=== PATIENT | female | born 1930 | race Caucasian/White ===

== ENCOUNTER 2017-11-08 23:18 | Inpatient (IN) | payer MEDICARE, MEDICAID ==
--- NOTE | 2017-11-09 00:28 | ED Physician Chart ---
ED Chief Complaint/HPI - Patient Information Date Seen:: 11/09/17 Time Seen:: 00:24 Chief Complaint:: agitation History of Present Illness:: 87 yr old female with alzheimers demensia agitation here gem rogel Allergies:: Allergies Allergy/AdvReac Type Severity Reaction Status Date / Time No Known Allergies Allergy Verified 11/08/17 23:55 Vitals:: Vital Signs - 8 hr 11/08/17 23:20 Temp 97.7 F HR 81 RR 19 BP 115/63 O2 Sat % 96 ED Review of Systems - Review of Systems General/Constitutional: No fever, Chills, No chills, No weight loss, No weakness , No diaphoresis, No edema, No loss of appetite Skin: No skin lesions, No rash, No bruising Head: No headache, No light-headedness Eyes: No loss of vision, No pain, No diplopia ENT: No earache, No nasal drainage, No sore throat, No tinnitus Neck: No neck pain, No swelling, No thyromegaly, No stiffness, No mass noted Cardio Vascular: No chest pain, No palpitations, No PND, No orthopnea, No edema Pulmonary: No SOB, No cough, No sputum, No wheezing GI: No nausea, No vomiting, No diarrhea, No pain, No melena, No hematochezia, No constipation, No hematemesis G/U: No dysuria, No frequency, No hematuria Musculoskeletal: No bone or joint pain, No back pain, No muscle pain Endocrine: No polyuria, No polydipsia Psychiatric: No prior psych history, No depression, No anxiety, No suicidal ideation Hematopoietic: No bruising, No lymphadenopathy Allergic/Immuno: No urticaria, No angioedema Neurological: No syncope, No focal symptoms, No weakness, No paresthesia, No headache, No seizure, No dizziness, No confusion, No vertigo ED Past Medical History - Past Medical History Past Medical History: Other (alzheimers dementia ) Family History: None Social History: Non Smoker, No Alcohol, No Drug Use Psychiatricy History: Schizophrenia, Bipolar, Dementia Family Medical History - Family Member Mother History Unknown: Yes ED Physical Exam - Physical Examination General/Constitutional: Awake, Well-developed, well-nourished, Alert, No distress, GCS 15, Non-toxic appearing, Ambulatory Head: Atraumatic Eyes: Lids, conjuctiva normal, PERRL, EOMI Skin: Nl inspection, No rash, No skin lesions, No ecchymosis, Well hydrated, No lymphadenopathy ENMT: External ears, nose nl, Nasal exam nl, Lips, teeth, gums nl Neck: Nontender, Full ROM w/o pain, No JVD, No nuchal rigidity, No bruit, No mass, No stridor Respiratory: Nl effort/Exclusion, Clear to Auscultation, No Wheeze/Rhonchi/Rales Cardio Vascular: RRR, No murmur, gallop, rubs, NL S1 S2 GI: No tenderness/rebounding/guarding, No organomegaly, No hernia, Normal BS's, Nondistended, No mass/bruits, No McBurney tenderness : No CVA tenderness Extremities: No tenderness or effusion, Full ROM, normal strength in all extremities, No edema, Normal digits & nails Neuro/Psych: Alert/oriented, DTR's symmetric, Normal sensory exam, Normal motor strength, Judgement/insight normal, Mood normal, Normal gait, No focal deficits Misc: Normal back, No paraspinal tenderness ED Assessment - Assessment General Assessment: pt awake but sedated ED Septic Shock - . Is Septic Shock (SBP<90, OR Lactate>4 mmol\L) present?: No - <6hrs of presentation: Vital Signs: Vital Signs - 8 hr 11/08/17 23:20 Temp 97.7 F HR 81 RR 19 BP 115/63 O2 Sat % 96 Assessment of Lungs: No Rales Assessment of Heart: No Rub ED Reassessment (Disposition) - Diagnosis Diagnosis:: t - Patient Disposition Discharge/Transfer:: Acute Care w/in this hosp
--- NOTE | 2017-11-09 00:39 | ED Physician Chart ---
ED Chief Complaint/HPI - Patient Information Date Seen:: 11/09/17 Time Seen:: 00:34 Chief Complaint:: agitation History of Present Illness:: yr old female bib for agitation Allergies:: Allergies Allergy/AdvReac Type Severity Reaction Status Date / Time No Known Allergies Allergy Verified 11/08/17 23:55 Vitals:: Vital Signs - 8 hr 11/08/17 23:20 Temp 97.7 F HR 81 RR 19 BP 115/63 O2 Sat % 96 ED Review of Systems - Review of Systems General/Constitutional: No fever, No chills, No weight loss, No weakness, No diaphoresis, No edema, No loss of appetite Skin: No skin lesions, No rash, No bruising Head: No headache, No light-headedness Eyes: No loss of vision, No pain, No diplopia ENT: No earache, No nasal drainage, No sore throat, No tinnitus Neck: No neck pain, No swelling, No thyromegaly, No stiffness, No mass noted Cardio Vascular: No chest pain, No palpitations, No PND, No orthopnea, No edema Pulmonary: No SOB, No cough, No sputum, No wheezing GI: No nausea, No vomiting, No diarrhea, No pain, No melena, No hematochezia, No constipation, No hematemesis G/U: No dysuria, No frequency, No hematuria Musculoskeletal: No bone or joint pain, No back pain, No muscle pain Endocrine: No polyuria, No polydipsia Psychiatric: No prior psych history, No depression, No anxiety, No suicidal ideation Hematopoietic: No bruising, No lymphadenopathy Allergic/Immuno: No urticaria, No angioedema Neurological: No syncope, No focal symptoms, No weakness, No paresthesia, No headache, No seizure, No dizziness, No confusion, No vertigo ED Past Medical History - Past Medical History Past Medical History: Arthritis Family History: Heart disease Social History: Smoker Family Medical History - Family Member Mother History Unknown: Yes ED Physical Exam - Physical Examination General/Constitutional: Awake, Well-developed, well-nourished, Alert, No distress, GCS 15, Non-toxic appearing, Ambulatory Head: Atraumatic Eyes: Lids, conjuctiva normal, PERRL, EOMI Skin: Nl inspection, No rash, No skin lesions, No ecchymosis, Well hydrated, No lymphadenopathy ENMT: External ears, nose nl, Nasal exam nl, Lips, teeth, gums nl Neck: Nontender, Full ROM w/o pain, No JVD, No nuchal rigidity, No bruit, No mass, No stridor Respiratory: Nl effort/Exclusion, Clear to Auscultation, No Wheeze/Rhonchi/Rales Cardio Vascular: RRR, No murmur, gallop, rubs, NL S1 S2 GI: No tenderness/rebounding/guarding, No organomegaly, No hernia, Normal BS's, Nondistended, No mass/bruits, No McBurney tenderness : No CVA tenderness Extremities: No tenderness or effusion, Full ROM, normal strength in all extremities, No edema, Normal digits & nails Neuro/Psych: Alert/oriented, DTR's symmetric, Normal sensory exam, Normal motor strength, Judgement/insight normal, Mood normal, Normal gait, No focal deficits Misc: Normal back, No paraspinal tenderness ED Assessment - Assessment General Assessment: geropsych evaluation ED Septic Shock - . Is Septic Shock (SBP<90, OR Lactate>4 mmol\L) present?: No - <6hrs of presentation: Vital Signs: Vital Signs - 8 hr 11/08/17 23:20 Temp 97.7 F HR 81 RR 19 BP 115/63 O2 Sat % 96 ED Reassessment (Disposition) - Reassessment Reassessment Condition:: Improved - Diagnosis Diagnosis:: psycjhosis withalzheimers dz and schizophrenia
[2017-11-09 01:00] LABS: % BASOPHILS 2.2 % (0.0-2.0); % EOSINOPHILS 3.1 % (0.0-5.0); % LYMPHOCYTES 11.1 % (20.0-50.0); % MONOCYTES 10.3 % (2.0-10.0); % NEUTROPHILS 73.3 % (40.0-80.0); BASOPHILE ABSOLUTE 0.2 Th/cumm (0-0.2); EOSINOPHILE ABSOLUTE 0.2 Th/cmm (0.1-0.4); HEMATOCRIT 41.9 % (41.0-60); HEMOGLOBIN 13.8 gm/dL (12-16); LYMPHOCYTE ABSOLUTE 0.8 Th/cmm (1.5-3.0); MEAN CELL VOLUME 91.1 fl (81-100); MEAN CORPUSCULAR HGB CONC 32.9 pg (28.0-36.0); MEAN PLATELET VOLUME 8.1 fl; MONOCYTE ABSOLUTE 0.7 Th/cmm (0.3-1.0); NEUTROPHILE ABSOLUTE 5.3 Th/cmm (1.8-8.0); PLATELET COUNT 226 Th/cmm (150-400); RED CELL DISTRIBUTION WIDTH 14.2 % (11.5-20.0); WHITE BLOOD COUNT 7.2 Th/cmm (4.8-10.8)
[2017-11-09 01:12] LABS: ALB/GLOB RATIO 1.1 (1.0-1.8); ALBUMIN 3.3 gm/dL (3.7-5.3); ALKALINE PHOSPHATASE 76 U/L (34-104); ANION GAP 10.5 (7.0-16.0); BILIRUBIN,TOTAL 0.3 mg/dL (0.3-1.0); BUN - UREA NITROGEN 17 mg/dL (7-25); CARBON DIOXIDE 24.3 mEq/L (21.0-31.0); CHLORIDE 109 mEq/L (98-107); CREATININE - SERUM 0.6 mg/dL (0.6-1.2); GLUCOSE 95 mg/dL (70-105); POTASSIUM SERUM 3.8 mEq/L (3.5-5.1); SGOT 13 U/L (13-39); SGPT/ALT 19 U/L (7-52); SODIUM SERUM 140 mEq/L (136-145); TOTAL PROTEIN,SERUM 6.2 gm/dL (6.0-8.3)
[2017-11-09 02:52] VITALS: BP 108/57
[2017-11-09] MEDS: Escitalopram Oxalate 5 mg Tab PO SCH (09:37)
--- NOTE | 2017-11-09 09:42 | History and Physical ---
History of Present Illness - HPI Chief Complaint: Increased in agitation HPI: Patient was send from SNF for evaluation secondary to increased in agitation. Vital Signs: Last Vital Signs Temp 97.7 F 11/09/17 06:26 Pulse 68 11/09/17 06:26 Resp 19 11/09/17 06:26 BP 121/67 11/09/17 06:26 Pulse Ox 96 11/09/17 06:26 Past Medical History Cardiovascular: Report: CAD Pulmonary: Report: No Pertinent Hx USER EXPERIENCE ARCHITECT: Report: No Pertinent Hx GI: Report: No Pertinent Hx Psych: Report: Depression, Psychosis Musculoskeletal: Report: No Pertinent Hx Rheumatologic: Report: No pertinent Hx Infectious Disease: Report: No Pertinent Hx Renal/: Report: No Pertinent Hx Endocrine: Report: No Pertinent Hx - Past Surgical History Past Surgical History: No pertinent Hx Family Medical History - Family Member Mother History Unknown: Yes Ethnicity: Unknown Living Status: Unknown Social History Smoke: No Alcohol: None Drugs: None Lives: Alf Domestic Violence: Negative - Medications Home Medications: Home Medication Medication Instructions Recorded Type Aspirin [Ecotrin] 81 mg PO DAILY 11/09/17 History Donepezil Hcl [Aricept] 5 mg PO HS 11/09/17 History - Allergies Allergies/Adverse Reactions: Allergies Allergy/AdvReac Type Severity Reaction Status Date / Time No Known Allergies Allergy Verified 11/08/17 23:55 Review of Systems - Review of Systems Constitutional: Report: No Significant Eyes: Report: No Significant ENT: Report: No Significant Respiratory: Report: No Significant Cardiovascular: Report: No Significant Gastrointestinal: Report: No Significant Genitourinary: Report: No Significant Musculoskeletal: Report: No Significant Skin: Report: No Significant Neurological: Report: Weakness, Confusion Physical Exam - Physical Exam HEENT: Report: Ears Nose Throat within normal limits Neck: Report: Within normal limits Cardiovascular Systems: Report: Regular, Rate and Rhythm Respiratory: Report: Breath Sounds are within normal limits Abdomen: Report: Non-tender to palpation Back: Report: Inspection of back is within normal limits. Extremities: Report: Non-tender to palpation. Skin: Report: Color of skin is within normal limits, Warm, Dry Neuro/Psych: Report: Disoriented to name time or place - Lab Results All Lab Results last 24 hours: Laboratory Results - last 24 hr 11/09/17 11/09/17 11/09/17 00:40 00:40 00:40 WBC 7.2 RBC 4.60 Hgb 13.8 Hct 41.9 MCV 91.1 MCH 30.0 MCHC Differential 32.9 RDW 14.2 Plt Count 226 MPV 8.1 Neutrophils % 73.3 Lymphocytes % 11.1 L Monocytes % 10.3 H Eosinophils % 3.1 Basophils % 2.2 H Sodium 140 Potassium 3.8 Chloride 109 H Carbon Dioxide 24.3 Anion Gap 10.5 BUN 17 Creatinine 0.6 Est GFR ( Amer) TNP Est GFR (Non-Af Amer) TNP BUN/Creatinine Ratio 28.3 Glucose 95 Calcium 9.0 Total Bilirubin 0.3 AST 13 ALT 19 Alkaline Phosphatase 76 Total Protein 6.2 Albumin 3.3 L Globulin 2.9 Albumin/Globulin Ratio 1.1 TSH 0.34 - Assessment Assessment: Patient is awake, non verbal. 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 - Plan Plan: Patient is follow by Psychiatry, will continue with SNF meds.
--- NOTE | 2017-11-09 10:40 | Psychiatric Evaluation ---
DATE OF SERVICE: 11/09/2017 PSYCHIATRIC EVALUATION AND MENTAL STATUS EXAMINATION IDENTIFYING DATA: The patient is an 87-year-old woman, resident of [facility] in [place]. Information obtained by directly interviewing the patient as well as reviewing the admission papers and they are reliable. JUSTIFICATION OF HOSPITALIZATION: The patient is admitted here for acute anxiety and depression. CHIEF COMPLAINT: "I don't know." HISTORY OF PRESENT ILLNESS: This is the first psychiatric hospitalization to [facility] for this patient who is reported to have been getting Ativan on a p.r.n. basis, but the patient is reported to have been getting easily agitated and anxious and hence the patient has been referred over here for further stabilization. Chart is reviewed. The patient is interviewed. The patient continues to be isolative and withdrawn and with poor verbalization, the patient does not want to talk anything. PAST PSYCHIATRIC HISTORY: Details are not known. MEDICAL HISTORY: Physical examination is requested to be done by Dr. Monsalve. SUBSTANCE ABUSE HISTORY: None. PHYSICAL OR SEXUAL ABUSE HISTORY: None. LEGAL PROBLEMS: None at this time. STRENGTH AND ASSETS: The patient seems to be motivated. MENTAL STATUS EXAMINATION: The patient is an 87-year-old thin built, superficially cooperative. Eye contact is poor. Mood is noted to be irritable. Affect is constricted. The patient has been having lot of anxiety symptoms. The patient is not presenting with any psychotic symptoms. The patient is selectively mute. Attention span and concentration are noted to be fair at this time. The patient's cognitive abilities could not be tested because the patient is refusing to answer any of the questions. DIAGNOSTIC IMPRESSION: AXIS 1: Anxiety disorder, not otherwise specified. AXIS IB: Dementia and behavioral change, secondary trait. AXIS IC: Depressive disorder, not otherwise specified. AXIS II: None. AXIS III: As per Dr. Monsalve. IMMEDIATE TREATMENT PLAN: The patient is going to be observed on inpatient unit. The patient is going to be started on low dose of Lexapro. ESTIMATED LENGTH OF STAY: 3-5 days. DISCHARGE CRITERIA: When she no longer a threat to self or others and be able to cope up with the stress. [facility]# [id number]
[2017-11-10] MEDS: Escitalopram Oxalate 5 mg Tab PO SCH (09:10)
--- NOTE | 2017-11-10 09:40 | General Progress Note ---
Subjective - Review of Systems Service Date: 11/10/17 Subjective: Patient confused Objective - Results Result Diagrams: 11/09/17 00:40 11/09/17 00:40 Recent Labs: Laboratory Last Values WBC 7.2 Th/cmm (4.8-10.8) 11/09/17 00:40 RBC 4.60 Mil/cmm (3.80-5.20) 11/09/17 00:40 Hgb 13.8 gm/dL (12-16) 11/09/17 00:40 Hct 41.9 % (41.0-60) 11/09/17 00:40 MCV 91.1 fl (81-100) 11/09/17 00:40 MCH 30.0 pg (27.0-31.0) 11/09/17 00:40 MCHC Differential 32.9 pg (28.0-36.0) 11/09/17 00:40 RDW 14.2 % (11.5-20.0) 11/09/17 00:40 Plt Count 226 Th/cmm (150-400) 11/09/17 00:40 MPV 8.1 fl 11/09/17 00:40 Neutrophils % 73.3 % (40.0-80.0) 11/09/17 00:40 Lymphocytes % 11.1 % (20.0-50.0) L 11/09/17 00:40 Monocytes % 10.3 % (2.0-10.0) H 11/09/17 00:40 Eosinophils % 3.1 % (0.0-5.0) 11/09/17 00:40 Basophils % 2.2 % (0.0-2.0) H 11/09/17 00:40 Sodium 140 mEq/L (136-145) 11/09/17 00:40 Potassium 3.8 mEq/L (3.5-5.1) 11/09/17 00:40 Chloride 109 mEq/L (98-107) H 11/09/17 00:40 Carbon Dioxide 24.3 mEq/L (21.0-31.0) 11/09/17 00:40 Anion Gap 10.5 (7.0-16.0) 11/09/17 00:40 BUN 17 mg/dL (7-25) 11/09/17 00:40 Creatinine 0.6 mg/dL (0.6-1.2) 11/09/17 00:40 Est GFR ( Amer) TNP 11/09/17 00:40 Est GFR (Non-Af Amer) TNP 11/09/17 00:40 BUN/Creatinine Ratio 28.3 11/09/17 00:40 Glucose 95 mg/dL (70-105) 11/09/17 00:40 Calcium 9.0 mg/dL (8.6-10.3) 11/09/17 00:40 Total Bilirubin 0.3 mg/dL (0.3-1.0) 11/09/17 00:40 AST 13 U/L (13-39) 11/09/17 00:40 ALT 19 U/L (7-52) 11/09/17 00:40 Alkaline Phosphatase 76 U/L (34-104) 11/09/17 00:40 Total Protein 6.2 gm/dL (6.0-8.3) 11/09/17 00:40 Albumin 3.3 gm/dL (3.7-5.3) L 11/09/17 00:40 Globulin 2.9 gm/dL 11/09/17 00:40 Albumin/Globulin Ratio 1.1 (1.0-1.8) 11/09/17 00:40 TSH 0.34 uIU/ml (0.34-5.60) 11/09/17 00:40 - Physical Exam Vitals and I&O: Vital Signs Temp 98.1 F 11/10/17 06:30 Pulse 72 11/10/17 06:30 Resp 19 11/10/17 06:30 BP 123/71 11/10/17 06:30 Pulse Ox 96 11/10/17 06:30 Intake & Output 11/09/17 11/10/17 11/10/17 18:59 06:59 18:59 Intake Total 900 240 Output Total 1 Balance 900 239 Intake: Oral 900 240 Output: Urine/Stool Mix 1 Other: # Voids 4 3 # Bowel Movements 1 0 Active Medications: Current Medications Aspirin (Ecotrin) 81 mg PO DAILY ELAINE Stop: 01/08/18 08:59 Last Admin: 11/10/17 09:10 Dose: 81 mg Donepezil HCl (Aricept) 5 mg PO HS ELAINE Stop: 01/08/18 20:59 Last Admin: 11/09/17 20:39 Dose: 5 mg Escitalopram Oxalate (Lexapro) 5 mg PO DAILY ELAINE; Protocol Stop: 01/08/18 09:59 Last Admin: 11/10/17 09:10 Dose: 5 mg Lorazepam (Ativan) 0.5 mg PO Q4HR PRN; Protocol PRN Reason: Anxiety Stop: 12/09/17 02:52 Zolpidem Tartrate (Ambien) 5 mg PO HS PRN PRN Reason: Insomnia Stop: 01/08/18 02:52 General: Alert, No acute distress HEENT: Atraumatic Cardiovascular: Regular rate Lungs: Clear to auscultation Abdomen: Bowel sounds Extremities: Other (No edema) Neurological: Other (Unstable gait) Skin: Other (Warm and dry) Psych/Mental Status: Other (Patient is confused, not oriented) Assessment/Plan - Assessment Assessment: Patient is awake, alert, calm, in no acute distress - Plan Plan: Patient is under psychiatric care. Will continue with SNF meds.
--- NOTE | 2017-11-10 20:46 | Progress Notes ---
DATE: 11/10/2017 PSYCHIATRIC PROGRESS NOTE SUBJECTIVE: Staff was spoken to. The patient is interviewed. Mood is noted to be irritable. Affect is constricted. Insight and judgment at this time are noted to be very much impaired. Impulse control is noted to be limited. Coping skills are noted to be limited. No side effects to the medications are noted. The patient has been having difficult time to cope with the stress. The patient is isolative and withdrawn. The patient is still very reluctant to participate in any of the groups and has been very depressed. PLAN: To continue the patient with the Lexapro and use Ativan as needed and followup. JOB# [id number]
--- NOTE | 2017-11-11 09:17 | General Progress Note ---
Subjective - Review of Systems Service Date: 11/11/17 Subjective: Patient confused Objective - Results Result Diagrams: 11/09/17 00:40 11/09/17 00:40 Recent Labs: Laboratory Last Values WBC 7.2 Th/cmm (4.8-10.8) 11/09/17 00:40 RBC 4.60 Mil/cmm (3.80-5.20) 11/09/17 00:40 Hgb 13.8 gm/dL (12-16) 11/09/17 00:40 Hct 41.9 % (41.0-60) 11/09/17 00:40 MCV 91.1 fl (81-100) 11/09/17 00:40 MCH 30.0 pg (27.0-31.0) 11/09/17 00:40 MCHC Differential 32.9 pg (28.0-36.0) 11/09/17 00:40 RDW 14.2 % (11.5-20.0) 11/09/17 00:40 Plt Count 226 Th/cmm (150-400) 11/09/17 00:40 MPV 8.1 fl 11/09/17 00:40 Neutrophils % 73.3 % (40.0-80.0) 11/09/17 00:40 Lymphocytes % 11.1 % (20.0-50.0) L 11/09/17 00:40 Monocytes % 10.3 % (2.0-10.0) H 11/09/17 00:40 Eosinophils % 3.1 % (0.0-5.0) 11/09/17 00:40 Basophils % 2.2 % (0.0-2.0) H 11/09/17 00:40 Sodium 140 mEq/L (136-145) 11/09/17 00:40 Potassium 3.8 mEq/L (3.5-5.1) 11/09/17 00:40 Chloride 109 mEq/L (98-107) H 11/09/17 00:40 Carbon Dioxide 24.3 mEq/L (21.0-31.0) 11/09/17 00:40 Anion Gap 10.5 (7.0-16.0) 11/09/17 00:40 BUN 17 mg/dL (7-25) 11/09/17 00:40 Creatinine 0.6 mg/dL (0.6-1.2) 11/09/17 00:40 Est GFR ( Amer) TNP 11/09/17 00:40 Est GFR (Non-Af Amer) TNP 11/09/17 00:40 BUN/Creatinine Ratio 28.3 11/09/17 00:40 Glucose 95 mg/dL (70-105) 11/09/17 00:40 Calcium 9.0 mg/dL (8.6-10.3) 11/09/17 00:40 Total Bilirubin 0.3 mg/dL (0.3-1.0) 11/09/17 00:40 AST 13 U/L (13-39) 11/09/17 00:40 ALT 19 U/L (7-52) 11/09/17 00:40 Alkaline Phosphatase 76 U/L (34-104) 11/09/17 00:40 Total Protein 6.2 gm/dL (6.0-8.3) 11/09/17 00:40 Albumin 3.3 gm/dL (3.7-5.3) L 11/09/17 00:40 Globulin 2.9 gm/dL 11/09/17 00:40 Albumin/Globulin Ratio 1.1 (1.0-1.8) 11/09/17 00:40 TSH 0.34 uIU/ml (0.34-5.60) 11/09/17 00:40 - Physical Exam Vitals and I&O: Vital Signs Temp 97.6 F 11/11/17 06:22 Pulse 71 11/11/17 06:22 Resp 18 11/11/17 06:22 BP 112/72 11/11/17 06:22 Pulse Ox 92 11/11/17 06:22 Intake & Output 11/10/17 11/11/17 11/11/17 18:59 06:59 18:59 Intake Total 700 360 Output Total 1 Balance 700 359 Intake: Oral 700 360 Output: Urine/Stool Mix 1 Other: # Voids 3 2 # Bowel Movements 1 1 Active Medications: Current Medications Aspirin (Ecotrin) 81 mg PO DAILY ELAINE Stop: 01/08/18 08:59 Last Admin: 11/10/17 09:10 Dose: 81 mg Donepezil HCl (Aricept) 5 mg PO HS ELAINE Stop: 01/08/18 20:59 Last Admin: 11/10/17 20:57 Dose: 5 mg Escitalopram Oxalate (Lexapro) 5 mg PO DAILY ELAINE; Protocol Stop: 01/08/18 09:59 Last Admin: 11/10/17 09:10 Dose: 5 mg Lorazepam (Ativan) 0.5 mg PO Q4HR PRN; Protocol PRN Reason: Anxiety Stop: 12/09/17 02:52 Zolpidem Tartrate (Ambien) 5 mg PO HS PRN PRN Reason: Insomnia Stop: 01/08/18 02:52 General: Alert, No acute distress HEENT: Atraumatic Cardiovascular: Regular rate Lungs: Clear to auscultation Abdomen: Bowel sounds Extremities: Other (No edema) Neurological: Other (Unstable gait) Skin: Other (Warm and dry) Psych/Mental Status: Other (Patient is confused, not oriented) Assessment/Plan - Assessment Assessment: Patient is awake, alert, calm, in no acute distress - Plan Plan: Patient is under psychiatric care. Will continue with SNF meds.
[2017-11-11] MEDS: Escitalopram Oxalate 5 mg Tab PO SCH (16:21)
--- NOTE | 2017-11-11 18:49 | Consultation ---
DATE OF CONSULTATION: 11/11/2017 REFERRING PHYSICIAN: Dana Zhang M.D. TYPE OF CONSULTATION: Psychology. HISTORY OF PRESENT ILLNESS: The patient is an 87-year-old female. The patient is a resident of [facility] in [place]. The following is by review of the medical record and by patient self-report. The patient is being admitted due to acute anxiety and depression. According to record review, the patient had become easily agitated and anxious as reported by the staff at the patient's facility. The patient presents with some expressive aphasia or possibly she is being selectively mute. The patient did not answer questions about suicidal ideation, plan, or intention. The patient appears to be withdrawn. PAST MEDICAL HISTORY: Please see history and physical by Dr. Monsalve. PAST PSYCHIATRIC HISTORY: Information is unavailable at the time of this clinical interview. SUBSTANCE ABUSE HISTORY: The patient did not answer this question. PSYCHOSOCIAL HISTORY: The patient did not answer questions about occupational or educational history or adventism affiliation. She did not answer questions about history of physical or sexual abuse. She did not answer questions about current legal problems. The patient did not discuss any family relationships, marital status, or any other type of support system. MENTAL STATUS EXAMINATION: The patient appears to be her stated age, although somewhat frail. Attitude is superficially cooperative. Eye contact is poor. Speech is slow and delayed and soft. Mood is irritable. Affect is constricted. The patient is complaining of anxiety as well. The patient denied any auditory or visual hallucinations. The patient denies any suicidal ideation, plan or intention. The patient is selectively mute throughout the interview. The patient's behavior has been withdrawn and isolative according to the staff on the unit. Concentration is fair to poor. Impulse control is limited. The patient did not participate in the memory assessment. Sensorium was alert and oriented to self and place. The patient did not participate in the interpretation of proverbs. Insight is poor. Judgment is impaired. DIAGNOSTIC IMPRESSION: AXIS I: 1. Anxiety disorder, not otherwise specified. 2. Depressive disorder, not otherwise specified. 3. Dementia with behavioral disturbance. AXIS II: Deferred. AXIS III: Per Dr. Monsalve. TREATMENT PLAN: The patient has been seen by Dr. Zhang for psychiatric evaluation and for the management of the patient's psychotropic medications. Dr. Zhang has indicated the patient is being started on a low dose of Lexapro. We will provide supportive psychotherapy to include a simple anxiety reduction skill. We will provide coping strategies for phase of life issues. We will provide cognitive behavioral therapy if the patient is able to demonstrate the ability and capacity to benefit with this type of psychological intervention. We will provide motivational enhancement for the patient to become compliant and stay compliant with all aspects of her care and treatment. We will continue to provide supportive therapy including stress management. Thank you, Dr. Zhang, for this consult and the opportunity to participate in this patient's care. JOB# [id number] ALIE
--- NOTE | 2017-11-12 02:23 | Progress Notes ---
DATE: 11/11/2017 PSYCHIATRIC PROGRESS NOTE SUBJECTIVE: Staff was spoken to. The patient is interviewed. Mood is noted to be irritable. Affect is constricted. The patient is having difficult time to articulate. The patient is refusing to eat and fluid intake is also noted to be very less. The patient is extremely depressed. On that basis, the patient has been placed on the Lexapro 5 mg and the patient is encouraged to comply with the medication. ASSESSMENT: The patient at this time is severely depressed. PLAN: To continue the patient with the supportive therapy. Encouraged the patient to verbalize the concerns rather than to act out. JOB# [id number]
--- NOTE | 2017-11-12 09:07 | General Progress Note ---
Subjective - Review of Systems Service Date: 11/12/17 Subjective: Patient confused Objective - Results Result Diagrams: 11/09/17 00:40 11/09/17 00:40 Recent Labs: Laboratory Last Values WBC 7.2 Th/cmm (4.8-10.8) 11/09/17 00:40 RBC 4.60 Mil/cmm (3.80-5.20) 11/09/17 00:40 Hgb 13.8 gm/dL (12-16) 11/09/17 00:40 Hct 41.9 % (41.0-60) 11/09/17 00:40 MCV 91.1 fl (81-100) 11/09/17 00:40 MCH 30.0 pg (27.0-31.0) 11/09/17 00:40 MCHC Differential 32.9 pg (28.0-36.0) 11/09/17 00:40 RDW 14.2 % (11.5-20.0) 11/09/17 00:40 Plt Count 226 Th/cmm (150-400) 11/09/17 00:40 MPV 8.1 fl 11/09/17 00:40 Neutrophils % 73.3 % (40.0-80.0) 11/09/17 00:40 Lymphocytes % 11.1 % (20.0-50.0) L 11/09/17 00:40 Monocytes % 10.3 % (2.0-10.0) H 11/09/17 00:40 Eosinophils % 3.1 % (0.0-5.0) 11/09/17 00:40 Basophils % 2.2 % (0.0-2.0) H 11/09/17 00:40 Sodium 140 mEq/L (136-145) 11/09/17 00:40 Potassium 3.8 mEq/L (3.5-5.1) 11/09/17 00:40 Chloride 109 mEq/L (98-107) H 11/09/17 00:40 Carbon Dioxide 24.3 mEq/L (21.0-31.0) 11/09/17 00:40 Anion Gap 10.5 (7.0-16.0) 11/09/17 00:40 BUN 17 mg/dL (7-25) 11/09/17 00:40 Creatinine 0.6 mg/dL (0.6-1.2) 11/09/17 00:40 Est GFR ( Amer) TNP 11/09/17 00:40 Est GFR (Non-Af Amer) TNP 11/09/17 00:40 BUN/Creatinine Ratio 28.3 11/09/17 00:40 Glucose 95 mg/dL (70-105) 11/09/17 00:40 Calcium 9.0 mg/dL (8.6-10.3) 11/09/17 00:40 Total Bilirubin 0.3 mg/dL (0.3-1.0) 11/09/17 00:40 AST 13 U/L (13-39) 11/09/17 00:40 ALT 19 U/L (7-52) 11/09/17 00:40 Alkaline Phosphatase 76 U/L (34-104) 11/09/17 00:40 Total Protein 6.2 gm/dL (6.0-8.3) 11/09/17 00:40 Albumin 3.3 gm/dL (3.7-5.3) L 11/09/17 00:40 Globulin 2.9 gm/dL 11/09/17 00:40 Albumin/Globulin Ratio 1.1 (1.0-1.8) 11/09/17 00:40 TSH 0.34 uIU/ml (0.34-5.60) 11/09/17 00:40 - Physical Exam Vitals and I&O: Vital Signs Temp 98.4 F 11/12/17 06:28 Pulse 79 11/12/17 06:28 Resp 19 11/12/17 06:28 BP 118/76 11/12/17 06:28 Pulse Ox 94 11/12/17 06:28 Intake & Output 11/11/17 11/12/17 11/12/17 18:59 06:59 18:59 Intake Total 800 240 Balance 800 240 Intake: Oral 800 240 Other: # Voids 3 3 # Bowel Movements 0 0 Active Medications: Current Medications Aspirin (Ecotrin) 81 mg PO DAILY ELAINE Stop: 01/08/18 08:59 Last Admin: 11/11/17 16:21 Dose: Not Given Donepezil HCl (Aricept) 5 mg PO ELAINE Stop: 01/08/18 20:59 Last Admin: 11/11/17 21:01 Dose: 5 mg Escitalopram Oxalate (Lexapro) 5 mg PO DAILY ELAINE; Protocol Stop: 01/08/18 09:59 Last Admin: 11/11/17 16:21 Dose: Not Given Lorazepam (Ativan) 0.5 mg PO Q4HR PRN; Protocol PRN Reason: Anxiety Stop: 12/09/17 02:52 Last Admin: 11/11/17 21:01 Dose: 0.5 mg Zolpidem Tartrate (Ambien) 5 mg PO HS PRN PRN Reason: Insomnia Stop: 01/08/18 02:52 General: Alert, No acute distress HEENT: Atraumatic Cardiovascular: Regular rate Lungs: Clear to auscultation Abdomen: Bowel sounds Extremities: Other (No edema) Neurological: Other (Unstable gait) Skin: Other (Warm and dry) Psych/Mental Status: Other (Patient is confused, not oriented) Assessment/Plan - Assessment Assessment: Patient is awake, non verbal. Per nurse report she is not swallowing well. 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 - Plan Plan: Patient is follow by Psychiatry, will continue with SNF meds. Swallow eval is requested. Nutritional Asmnt/Malnutr-PDOC - Dietary Evaluation Malnutrition Findings (Please click <Entered> for more info): Nutritional Asmnt/Malnutrition Start: 11/11/17 17: 20 Text: Status: Complete Freq: Protocol: Document 11/11/17 17:20 LCHENG (Rec: 11/11/17 17:26 LCHENG [email or web address]) Nutritional Asmnt/Malnutrition Patient General Information Nutritional Screening High Risk Consult Diagnosis anxiety Pertinent Medical Hx/Surgical Hx alzheimers dementia, schizophrenia, bipolar Subjective Information Consult received for low albumin. Pt seen lying in bed at time of visit, confused, not able to communicate. Per EMR, PO intake 50-75%, meeting estimated nutritional needs. Current Diet Order/ Nutrition Support finely chopped Pertinent Medications reviewed Pertinent Labs 11/09 Cl 109, Alb 3.3 Nutritional Hx/Data Height 1.68 m Height (Calculated Centimeters) 167.6 Current Weight (lbs) 58.967 kg Weight (Calculated Kilograms) 59.0 Weight (Calculated Grams) 37558.0 [place] Body Weight 130 Body Mass Index (BMI) 20.9 Weight Status Approriate GI Symptoms GI Symptoms None Last BM 11/11 Difficult in: None Skin Integrity/Comment: intact Current %PO Fair (50-74%) Estimated Nutritional Goals BEE in Kcals: Using Current wt Calories/Kcals/Kg 25-30 Kcals Calculated 8586-1526 Protein: Using Current wt Protein g/k Protein Calculated 59 Fluid: ml 1475-1770ml (1ml/kcal) Nutritional Problem No current Nutrition Prob Problem N/A Malnutrition Alert Is there a minimum of two criteria No selected? Query Text:Check all the applicable criteria. A minimum of two criteria are recommended for diagnosis of either severe or non-severe malnutrition. Malnutrition Related to Morbid Obesity Malnutrition related to morbid obesity No Intervention/Recommendation Comments 1. Continue with current diet as ordered. Assist pt with meals as needed. 2. Monitor PO intake, wt, labs and skin integrity 3. F/U as low risk in 7 dyas, 11/18, PO check 11/14 Expected Outcomes/Goals Expected Outcomes/Goals 1. PO intake to meet at least 75% of nutritional needs. 2. Wt stability, skin to remain intact, labs to approach WNL.
[2017-11-12] MEDS: Escitalopram Oxalate 5 mg Tab PO SCH (17:52)
--- NOTE | 2017-11-13 00:53 | Progress Notes ---
DATE: 11/12/2017 PSYCHIATRIC PROGRESS NOTE Staff was spoken to. The patient is interviewed. Mood is noted to be irritable. Affect is constricted. The patient is isolating and withdrawn. The patient is slowly responding to the medications. The patient has been placed on 5 mg of the Lexapro and has been able to tolerate the medication. No side effects to the medications are noted at this time. ASSESSMENT: The patient is still depressed. PLAN: To continue the patient with the supportive therapy. I encourage the patient to verbalize the concerns rather than to act out. JOB# [id number]
[2017-11-13] MEDS: Escitalopram Oxalate 5 mg Tab PO SCH (08:12)
--- NOTE | 2017-11-14 01:58 | Progress Notes ---
DATE: 11/13/2017 SUBJECTIVE: Staff was spoken to. The patient is interviewed. Mood is noted to be irritable. Affect is constricted. Coping skills are noted to be still poor. Insight and judgment also noted to be limited. The patient has been not willing to comply with the treatment. The patient is extremely depressed and has been reluctant to participate in any of the groups. ASSESSMENT: The patient is severely depressed and demented. PLAN: To continue the patient with supportive therapy. I encouraged her to verbalize the concerns rather than to act out. JOB# [id number]
[2017-11-14] MEDS: Escitalopram Oxalate 5 mg Tab PO SCH (08:39)
--- NOTE | 2017-11-14 09:00 | General Progress Note ---
Subjective - Review of Systems Service Date: 11/14/17 Subjective: Patient confused, non verbal. Objective - Results Result Diagrams: 11/09/17 00:40 11/09/17 00:40 Recent Labs: Laboratory Last Values WBC 7.2 Th/cmm (4.8-10.8) 11/09/17 00:40 RBC 4.60 Mil/cmm (3.80-5.20) 11/09/17 00:40 Hgb 13.8 gm/dL (12-16) 11/09/17 00:40 Hct 41.9 % (41.0-60) 11/09/17 00:40 MCV 91.1 fl (81-100) 11/09/17 00:40 MCH 30.0 pg (27.0-31.0) 11/09/17 00:40 MCHC Differential 32.9 pg (28.0-36.0) 11/09/17 00:40 RDW 14.2 % (11.5-20.0) 11/09/17 00:40 Plt Count 226 Th/cmm (150-400) 11/09/17 00:40 MPV 8.1 fl 11/09/17 00:40 Neutrophils % 73.3 % (40.0-80.0) 11/09/17 00:40 Lymphocytes % 11.1 % (20.0-50.0) L 11/09/17 00:40 Monocytes % 10.3 % (2.0-10.0) H 11/09/17 00:40 Eosinophils % 3.1 % (0.0-5.0) 11/09/17 00:40 Basophils % 2.2 % (0.0-2.0) H 11/09/17 00:40 Sodium 140 mEq/L (136-145) 11/09/17 00:40 Potassium 3.8 mEq/L (3.5-5.1) 11/09/17 00:40 Chloride 109 mEq/L (98-107) H 11/09/17 00:40 Carbon Dioxide 24.3 mEq/L (21.0-31.0) 11/09/17 00:40 Anion Gap 10.5 (7.0-16.0) 11/09/17 00:40 BUN 17 mg/dL (7-25) 11/09/17 00:40 Creatinine 0.6 mg/dL (0.6-1.2) 11/09/17 00:40 Est GFR ( Amer) TNP 11/09/17 00:40 Est GFR (Non-Af Amer) TNP 11/09/17 00:40 BUN/Creatinine Ratio 28.3 11/09/17 00:40 Glucose 95 mg/dL (70-105) 11/09/17 00:40 Calcium 9.0 mg/dL (8.6-10.3) 11/09/17 00:40 Total Bilirubin 0.3 mg/dL (0.3-1.0) 11/09/17 00:40 AST 13 U/L (13-39) 11/09/17 00:40 ALT 19 U/L (7-52) 11/09/17 00:40 Alkaline Phosphatase 76 U/L (34-104) 11/09/17 00:40 Total Protein 6.2 gm/dL (6.0-8.3) 11/09/17 00:40 Albumin 3.3 gm/dL (3.7-5.3) L 11/09/17 00:40 Globulin 2.9 gm/dL 11/09/17 00:40 Albumin/Globulin Ratio 1.1 (1.0-1.8) 11/09/17 00:40 TSH 0.34 uIU/ml (0.34-5.60) 11/09/17 00:40 - Physical Exam Vitals and I&O: Vital Signs Temp 98.7 F 11/13/17 20:15 Pulse 87 11/13/17 20:15 Resp 18 11/13/17 20:15 BP 107/57 11/13/17 20:15 Pulse Ox 92 11/13/17 20:15 Intake & Output 11/13/17 11/14/17 11/14/17 18:59 06:59 18:59 Intake Total 1200 Balance 1200 Intake: Oral 1200 Other: # Bowel Movements 1 Active Medications: Current Medications Aspirin (Ecotrin) 81 mg PO DAILY ELAINE Stop: 01/08/18 08:59 Last Admin: 11/14/17 08:39 Dose: 81 mg Donepezil HCl (Aricept) 5 mg PO HS ELAINE Stop: 01/08/18 20:59 Last Admin: 11/13/17 21:54 Dose: 5 mg Escitalopram Oxalate (Lexapro) 5 mg PO DAILY ELAINE; Protocol Stop: 01/08/18 09:59 Last Admin: 11/14/17 08:39 Dose: 5 mg Lorazepam (Ativan) 0.5 mg PO Q4HR PRN; Protocol PRN Reason: Anxiety Stop: 12/09/17 02:52 Last Admin: 11/11/17 21:01 Dose: 0.5 mg Zolpidem Tartrate (Ambien) 5 mg PO HS PRN PRN Reason: Insomnia Stop: 01/08/18 02:52 General: Alert, No acute distress HEENT: Atraumatic Cardiovascular: Regular rate Lungs: Clear to auscultation Abdomen: Bowel sounds Extremities: Other (No edema) Neurological: Other (Unstable gait) Skin: Other (Warm and dry) Psych/Mental Status: Other (Patient is confused, not oriented) Assessment/Plan - Assessment Assessment: Patient is awake, non verbal. Per nurse report she is not swallowing well. 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 - Plan Plan: Patient is follow by Psychiatry, will continue with SNF meds. Swallow evaluation recommendations are thin liquids. Nutritional Asmnt/Malnutr-PDOC - Dietary Evaluation Malnutrition Findings (Please click <Entered> for more info): Nutritional Asmnt/Malnutrition Start: 11/11/17 17: 20 Text: Status: Complete Freq: Protocol: Document 11/11/17 17:20 LCHENG (Rec: 11/11/17 17:26 LCHENG [email or web address]) Nutritional Asmnt/Malnutrition Patient General Information Nutritional Screening High Risk Consult Diagnosis anxiety Pertinent Medical Hx/Surgical Hx alzheimers dementia, schizophrenia, bipolar Subjective Information Consult received for low albumin. Pt seen lying in bed at time of visit, confused, not able to communicate. Per EMR, PO intake 50-75%, meeting estimated nutritional needs. Current Diet Order/ Nutrition Support finely chopped Pertinent Medications reviewed Pertinent Labs 11/09 Cl 109, Alb 3.3 Nutritional Hx/Data Height 1.68 m Height (Calculated Centimeters) 167.6 Current Weight (lbs) 58.967 kg Weight (Calculated Kilograms) 59.0 Weight (Calculated Grams) 70830.0 [place] Body Weight 130 Body Mass Index (BMI) 20.9 Weight Status Approriate GI Symptoms GI Symptoms None Last BM 8/6 Difficult in: None Skin Integrity/Comment: intact Current %PO Fair (50-74%) Estimated Nutritional Goals BEE in Kcals: Using Current wt Calories/Kcals/Kg 25-30 Kcals Calculated 9343-3468 Protein: Using Current wt Protein g/k Protein Calculated 59 Fluid: ml 1475-1770ml (1ml/kcal) Nutritional Problem No current Nutrition Prob Problem N/A Malnutrition Alert Is there a minimum of two criteria No selected? Query Text:Check all the applicable criteria. A minimum of two criteria are recommended for diagnosis of either severe or non-severe malnutrition. Malnutrition Related to Morbid Obesity Malnutrition related to morbid obesity No Intervention/Recommendation Comments 1. Continue with current diet as ordered. Assist pt with meals as needed. 2. Monitor PO intake, wt, labs and skin integrity 3. F/U as low risk in 7 dyas, 11/18, PO check 11/14 Expected Outcomes/Goals Expected Outcomes/Goals 1. PO intake to meet at least 75% of nutritional needs. 2. Wt stability, skin to remain intact, labs to approach WNL.
--- NOTE | 2017-11-15 00:37 | Progress Notes ---
DATE: 11/14/2017 SUBJECTIVE: Staff was spoken to. The patient is interviewed. Mood is noted to be irritable. Affect is constricted. The patient has just started to open up and then talked a little bit. Sleep is noted to be improving. Appetite is noted to be slightly improving. The patient is still very depressed. Coping skills are noted to be very poor. ASSESSMENT: The patient is still depressed. PLAN: To continue the patient with Lexapro. I encouraged the patient to verbalize the concerns rather than to act out. JOB# [id number]
--- NOTE | 2017-11-15 08:53 | General Progress Note ---
Subjective - Review of Systems Service Date: 11/15/17 Subjective: Patient confused, non verbal. Objective - Results Result Diagrams: 11/09/17 00:40 11/09/17 00:40 Recent Labs: Laboratory Last Values WBC 7.2 Th/cmm (4.8-10.8) 11/09/17 00:40 RBC 4.60 Mil/cmm (3.80-5.20) 11/09/17 00:40 Hgb 13.8 gm/dL (12-16) 11/09/17 00:40 Hct 41.9 % (41.0-60) 11/09/17 00:40 MCV 91.1 fl (81-100) 11/09/17 00:40 MCH 30.0 pg (27.0-31.0) 11/09/17 00:40 MCHC Differential 32.9 pg (28.0-36.0) 11/09/17 00:40 RDW 14.2 % (11.5-20.0) 11/09/17 00:40 Plt Count 226 Th/cmm (150-400) 11/09/17 00:40 MPV 8.1 fl 11/09/17 00:40 Neutrophils % 73.3 % (40.0-80.0) 11/09/17 00:40 Lymphocytes % 11.1 % (20.0-50.0) L 11/09/17 00:40 Monocytes % 10.3 % (2.0-10.0) H 11/09/17 00:40 Eosinophils % 3.1 % (0.0-5.0) 11/09/17 00:40 Basophils % 2.2 % (0.0-2.0) H 11/09/17 00:40 Sodium 140 mEq/L (136-145) 11/09/17 00:40 Potassium 3.8 mEq/L (3.5-5.1) 11/09/17 00:40 Chloride 109 mEq/L (98-107) H 11/09/17 00:40 Carbon Dioxide 24.3 mEq/L (21.0-31.0) 11/09/17 00:40 Anion Gap 10.5 (7.0-16.0) 11/09/17 00:40 BUN 17 mg/dL (7-25) 11/09/17 00:40 Creatinine 0.6 mg/dL (0.6-1.2) 11/09/17 00:40 Est GFR ( Amer) TNP 11/09/17 00:40 Est GFR (Non-Af Amer) TNP 11/09/17 00:40 BUN/Creatinine Ratio 28.3 11/09/17 00:40 Glucose 95 mg/dL (70-105) 11/09/17 00:40 Calcium 9.0 mg/dL (8.6-10.3) 11/09/17 00:40 Total Bilirubin 0.3 mg/dL (0.3-1.0) 11/09/17 00:40 AST 13 U/L (13-39) 11/09/17 00:40 ALT 19 U/L (7-52) 11/09/17 00:40 Alkaline Phosphatase 76 U/L (34-104) 11/09/17 00:40 Total Protein 6.2 gm/dL (6.0-8.3) 11/09/17 00:40 Albumin 3.3 gm/dL (3.7-5.3) L 11/09/17 00:40 Globulin 2.9 gm/dL 11/09/17 00:40 Albumin/Globulin Ratio 1.1 (1.0-1.8) 11/09/17 00:40 TSH 0.34 uIU/ml (0.34-5.60) 11/09/17 00:40 - Physical Exam Vitals and I&O: Vital Signs Temp 97.6 F 11/14/17 14:00 Pulse 76 11/14/17 14:00 Resp 19 11/14/17 14:00 BP 121/68 11/14/17 14:00 Pulse Ox 97 11/14/17 14:00 Intake & Output 11/14/17 11/15/17 11/15/17 18:59 06:59 18:59 Intake Total 960 Balance 960 Intake: Oral 960 Other: # Voids 3 # Bowel Movements 0 Active Medications: Current Medications Aspirin (Ecotrin) 81 mg PO DAILY ELAINE Stop: 01/08/18 08:59 Last Admin: 11/14/17 08:39 Dose: 81 mg Donepezil HCl (Aricept) 5 mg PO HS ELAINE Stop: 01/08/18 20:59 Last Admin: 11/14/17 21:07 Dose: 5 mg Escitalopram Oxalate (Lexapro) 5 mg PO DAILY ELAINE; Protocol Stop: 01/08/18 09:59 Last Admin: 11/14/17 08:39 Dose: 5 mg Lorazepam (Ativan) 0.5 mg PO Q4HR PRN; Protocol PRN Reason: Anxiety Stop: 12/09/17 02:52 Last Admin: 11/11/17 21:01 Dose: 0.5 mg Zolpidem Tartrate (Ambien) 5 mg PO HS PRN PRN Reason: Insomnia Stop: 01/08/18 02:52 General: Alert, No acute distress HEENT: Atraumatic Cardiovascular: Regular rate Lungs: Clear to auscultation Abdomen: Bowel sounds Extremities: Other (No edema) Neurological: Other (Unstable gait) Skin: Other (Warm and dry) Psych/Mental Status: Other (Patient is confused, not oriented) Assessment/Plan - Assessment Assessment: Patient is awake, non verbal. Per nurse report she is not swallowing well. 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 - Plan Plan: Patient is follow by Psychiatry, will continue with SNF meds. Swallow evaluation recommendations are thin liquids. Nutritional Asmnt/Malnutr-PDOC - Dietary Evaluation Malnutrition Findings (Please click <Entered> for more info): Nutritional Asmnt/Malnutrition Start: 11/11/17 17: 20 Text: Status: Complete Freq: Protocol: Document 11/11/17 17:20 LCHENG (Rec: 11/11/17 17:26 LCHENG [email or web address]) Nutritional Asmnt/Malnutrition Patient General Information Nutritional Screening High Risk Consult Diagnosis anxiety Pertinent Medical Hx/Surgical Hx alzheimers dementia, schizophrenia, bipolar Subjective Information Consult received for low albumin. Pt seen lying in bed at time of visit, confused, not able to communicate. Per EMR, PO intake 50-75%, meeting estimated nutritional needs. Current Diet Order/ Nutrition Support finely chopped Pertinent Medications reviewed Pertinent Labs 11/09 Cl 109, Alb 3.3 Nutritional Hx/Data Height 1.68 m Height (Calculated Centimeters) 167.6 Current Weight (lbs) 58.967 kg Weight (Calculated Kilograms) 59.0 Weight (Calculated Grams) 24840.0 [place] Body Weight 130 Body Mass Index (BMI) 20.9 Weight Status Approriate GI Symptoms GI Symptoms None Last BM 11/11 Difficult in: None Skin Integrity/Comment: intact Current %PO Fair (50-74%) Estimated Nutritional Goals BEE in Kcals: Using Current wt Calories/Kcals/Kg 25-30 Kcals Calculated 7390-8687 Protein: Using Current wt Protein g/k Protein Calculated 59 Fluid: ml 1475-1770ml (1ml/kcal) Nutritional Problem No current Nutrition Prob Problem N/A Malnutrition Alert Is there a minimum of two criteria No selected? Query Text:Check all the applicable criteria. A minimum of two criteria are recommended for diagnosis of either severe or non-severe malnutrition. Malnutrition Related to Morbid Obesity Malnutrition related to morbid obesity No Intervention/Recommendation Comments 1. Continue with current diet as ordered. Assist pt with meals as needed. 2. Monitor PO intake, wt, labs and skin integrity 3. F/U as low risk in 7 dyas, 11/18, PO check 11/14 Expected Outcomes/Goals Expected Outcomes/Goals 1. PO intake to meet at least 75% of nutritional needs. 2. Wt stability, skin to remain intact, labs to approach WNL.
[2017-11-15] MEDS: Escitalopram Oxalate 5 mg Tab PO SCH (09:17)
--- NOTE | 2017-11-15 23:55 | Progress Notes ---
DATE: 11/15/2017 PSYCHIATRIC PROGRESS NOTE SUBJECTIVE: Staff was spoken to. The patient is interviewed. Mood is noted to be irritable. Affect is constricted. The patient is isolative and withdrawn. Coping skills are noted to be very poor. The patient has been on Lexapro and has been able to tolerate the medication. Appetite is slowly improving. Sleep is noted to be fair. ASSESSMENT: The patient is still severely depressed and demented. PLAN: To continue the patient with the supportive therapy. Continue the Lexapro and follow the patient. JOB# [id number]
[2017-11-16] MEDS: Escitalopram Oxalate 5 mg Tab PO SCH (08:39)
--- NOTE | 2017-11-17 01:34 | Progress Notes ---
DATE: 11/16/2017 PSYCHIATRIC PROGRESS NOTE SUBJECTIVE: Staff was spoken to. The patient is interviewed. Mood is noted to be irritable. Affect is constricted. Coping skills are noted to be still poor. The patient has been having difficult time to swallow. Mood is noted to be still depressed. Affect is constricted. The patient is a total care patient. ASSESSMENT: The patient's coping skills are noted to be extremely poor and the patient is depressed. PLAN: To continue the patient with Lexapro and followup. JOB# [id number]
[2017-11-17] MEDS: Escitalopram Oxalate 5 mg Tab PO SCH (09:30)
--- NOTE | 2017-11-17 13:15 | Progress Notes ---
DATE: 11/17/2017 SUBJECTIVE: Staff was spoken to. The patient is interviewed. Mood is noted to be irritable. Affect is constricted. Coping skills are noted to be still poor. The patient is able to tolerate the Lexapro. No side effects to the medications are noted. ASSESSMENT: The patient is still depressed and gravely disabled. PLAN: To continue the patient with the supportive therapy. I encouraged the patient to verbalize the concerns rather than to act out. Please note that the patient is not ready to be discharged because of her depression. JOB# [id number]
--- NOTE | 2017-11-18 08:31 | General Progress Note ---
Subjective - Review of Systems Service Date: 11/18/17 Subjective: Patient confused, non verbal. Objective - Results Result Diagrams: 11/09/17 00:40 11/09/17 00:40 Recent Labs: Laboratory Last Values WBC 7.2 Th/cmm (4.8-10.8) 11/09/17 00:40 RBC 4.60 Mil/cmm (3.80-5.20) 11/09/17 00:40 Hgb 13.8 gm/dL (12-16) 11/09/17 00:40 Hct 41.9 % (41.0-60) 11/09/17 00:40 MCV 91.1 fl (81-100) 11/09/17 00:40 MCH 30.0 pg (27.0-31.0) 11/09/17 00:40 MCHC Differential 32.9 pg (28.0-36.0) 11/09/17 00:40 RDW 14.2 % (11.5-20.0) 11/09/17 00:40 Plt Count 226 Th/cmm (150-400) 11/09/17 00:40 MPV 8.1 fl 11/09/17 00:40 Neutrophils % 73.3 % (40.0-80.0) 11/09/17 00:40 Lymphocytes % 11.1 % (20.0-50.0) L 11/09/17 00:40 Monocytes % 10.3 % (2.0-10.0) H 11/09/17 00:40 Eosinophils % 3.1 % (0.0-5.0) 11/09/17 00:40 Basophils % 2.2 % (0.0-2.0) H 11/09/17 00:40 Sodium 140 mEq/L (136-145) 11/09/17 00:40 Potassium 3.8 mEq/L (3.5-5.1) 11/09/17 00:40 Chloride 109 mEq/L (98-107) H 11/09/17 00:40 Carbon Dioxide 24.3 mEq/L (21.0-31.0) 11/09/17 00:40 Anion Gap 10.5 (7.0-16.0) 11/09/17 00:40 BUN 17 mg/dL (7-25) 11/09/17 00:40 Creatinine 0.6 mg/dL (0.6-1.2) 11/09/17 00:40 Est GFR ( Amer) TNP 11/09/17 00:40 Est GFR (Non-Af Amer) TNP 11/09/17 00:40 BUN/Creatinine Ratio 28.3 11/09/17 00:40 Glucose 95 mg/dL (70-105) 11/09/17 00:40 Calcium 9.0 mg/dL (8.6-10.3) 11/09/17 00:40 Total Bilirubin 0.3 mg/dL (0.3-1.0) 11/09/17 00:40 AST 13 U/L (13-39) 11/09/17 00:40 ALT 19 U/L (7-52) 11/09/17 00:40 Alkaline Phosphatase 76 U/L (34-104) 11/09/17 00:40 Total Protein 6.2 gm/dL (6.0-8.3) 11/09/17 00:40 Albumin 3.3 gm/dL (3.7-5.3) L 11/09/17 00:40 Globulin 2.9 gm/dL 11/09/17 00:40 Albumin/Globulin Ratio 1.1 (1.0-1.8) 11/09/17 00:40 TSH 0.34 uIU/ml (0.34-5.60) 11/09/17 00:40 - Physical Exam Vitals and I&O: Vital Signs Temp 98.2 F 11/18/17 06:47 Pulse 64 11/18/17 06:47 Resp 18 11/18/17 06:47 BP 112/55 11/18/17 06:47 Pulse Ox 97 11/18/17 06:47 Intake & Output 11/17/17 11/18/17 11/18/17 18:59 06:59 18:59 Intake Total 800 120 Balance 800 120 Intake: Oral 800 120 Other: # Voids 3 3 # Bowel Movements 1 Active Medications: Current Medications Aspirin (Ecotrin) 81 mg PO DAILY ELAINE Stop: 01/08/18 08:59 Last Admin: 11/17/17 09:30 Dose: 81 mg Donepezil HCl (Aricept) 5 mg PO HS ELAINE Stop: 01/08/18 20:59 Last Admin: 11/17/17 21:01 Dose: 5 mg Escitalopram Oxalate (Lexapro) 5 mg PO DAILY ELAINE; Protocol Stop: 01/08/18 09:59 Last Admin: 11/17/17 09:30 Dose: 5 mg General: Alert, No acute distress HEENT: Atraumatic Cardiovascular: Regular rate Lungs: Clear to auscultation Abdomen: Bowel sounds Extremities: Other (No edema) Neurological: Other (Unstable gait) Skin: Other (Warm and dry) Psych/Mental Status: Other (Patient is confused, not oriented) Assessment/Plan - Assessment Assessment: Patient is awake, non verbal. Per nurse report she is not swallowing well. 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 - Plan Plan: Patient is follow by Psychiatry, will continue with SNF meds. Swallow evaluation recommendations are thin liquids. Nutritional Asmnt/Malnutr-PDOC - Dietary Evaluation Malnutrition Findings (Please click <Entered> for more info): Nutritional Asmnt/Malnutrition Start: 11/11/17 17: 20 Text: Status: Complete Freq: Protocol: Document 11/11/17 17:20 [email or web address] (Rec: 11/11/17 17:26 HENG [email or web address]) Nutritional Asmnt/Malnutrition Patient General Information Nutritional Screening High Risk Consult Diagnosis anxiety Pertinent Medical Hx/Surgical Hx alzheimers dementia, schizophrenia, bipolar Subjective Information Consult received for low albumin. Pt seen lying in bed at time of visit, confused, not able to communicate. Per EMR, PO intake 50-75%, meeting estimated nutritional needs. Current Diet Order/ Nutrition Support finely chopped Pertinent Medications reviewed Pertinent Labs 11/09 Cl 109, Alb 3.3 Nutritional Hx/Data Height 1.68 m Height (Calculated Centimeters) 167.6 Current Weight (lbs) 58.967 kg Weight (Calculated Kilograms) 59.0 Weight (Calculated Grams) 58702.0 [place] Body Weight 130 Body Mass Index (BMI) 20.9 Weight Status Approriate GI Symptoms GI Symptoms None Last BM 11/11 Difficult in: None Skin Integrity/Comment: intact Current %PO Fair (50-74%) Estimated Nutritional Goals BEE in Kcals: Using Current wt Calories/Kcals/Kg 25-30 Kcals Calculated 4334-3632 Protein: Using Current wt Protein g/k Protein Calculated 59 Fluid: ml 1475-1770ml (1ml/kcal) Nutritional Problem No current Nutrition Prob Problem N/A Malnutrition Alert Is there a minimum of two criteria No selected? Query Text:Check all the applicable criteria. A minimum of two criteria are recommended for diagnosis of either severe or non-severe malnutrition. Malnutrition Related to Morbid Obesity Malnutrition related to morbid obesity No Intervention/Recommendation Comments 1. Continue with current diet as ordered. Assist pt with meals as needed. 2. Monitor PO intake, wt, labs and skin integrity 3. F/U as low risk in 7 dyas, 11/18, PO check 11/14 Expected Outcomes/Goals Expected Outcomes/Goals 1. PO intake to meet at least 75% of nutritional needs. 2. Wt stability, skin to remain intact, labs to approach WNL.
[2017-11-18] MEDS: Escitalopram Oxalate 5 mg Tab PO SCH (14:35)
--- NOTE | 2017-11-18 17:19 | Progress Notes ---
DATE: 11/18/2017 SUBJECTIVE: Staff was spoken to. The patient is interviewed. Mood is noted to be irritable. Affect is constricted. The patient's coping skills are noted to be poor. Insight and judgment also noted to be impaired. No side effects to the medications are noted. The patient has been having difficult time to cope with the stress. The patient is being closely monitored. The patient is currently on Lexapro and has been able to tolerate the medication. ASSESSMENT: The patient is still depressed. PLAN: To continue the patient with the supportive therapy and followup. I encouraged the patient to verbalize the concerns rather than to act out. JOB# [id number]
[2017-11-19] MEDS: Escitalopram Oxalate 5 mg Tab PO SCH (08:31)
--- NOTE | 2017-11-19 09:02 | General Progress Note ---
Subjective - Review of Systems Service Date: 11/19/17 Subjective: Patient confused, non verbal. Objective - Results Result Diagrams: 11/09/17 00:40 11/09/17 00:40 Recent Labs: Laboratory Last Values WBC 7.2 Th/cmm (4.8-10.8) 11/09/17 00:40 RBC 4.60 Mil/cmm (3.80-5.20) 11/09/17 00:40 Hgb 13.8 gm/dL (12-16) 11/09/17 00:40 Hct 41.9 % (41.0-60) 11/09/17 00:40 MCV 91.1 fl (81-100) 11/09/17 00:40 MCH 30.0 pg (27.0-31.0) 11/09/17 00:40 MCHC Differential 32.9 pg (28.0-36.0) 11/09/17 00:40 RDW 14.2 % (11.5-20.0) 11/09/17 00:40 Plt Count 226 Th/cmm (150-400) 11/09/17 00:40 MPV 8.1 fl 11/09/17 00:40 Neutrophils % 73.3 % (40.0-80.0) 11/09/17 00:40 Lymphocytes % 11.1 % (20.0-50.0) L 11/09/17 00:40 Monocytes % 10.3 % (2.0-10.0) H 11/09/17 00:40 Eosinophils % 3.1 % (0.0-5.0) 11/09/17 00:40 Basophils % 2.2 % (0.0-2.0) H 11/09/17 00:40 Sodium 140 mEq/L (136-145) 11/09/17 00:40 Potassium 3.8 mEq/L (3.5-5.1) 11/09/17 00:40 Chloride 109 mEq/L (98-107) H 11/09/17 00:40 Carbon Dioxide 24.3 mEq/L (21.0-31.0) 11/09/17 00:40 Anion Gap 10.5 (7.0-16.0) 11/09/17 00:40 BUN 17 mg/dL (7-25) 11/09/17 00:40 Creatinine 0.6 mg/dL (0.6-1.2) 11/09/17 00:40 Est GFR ( Amer) TNP 11/09/17 00:40 Est GFR (Non-Af Amer) TNP 11/09/17 00:40 BUN/Creatinine Ratio 28.3 11/09/17 00:40 Glucose 95 mg/dL (70-105) 11/09/17 00:40 Calcium 9.0 mg/dL (8.6-10.3) 11/09/17 00:40 Total Bilirubin 0.3 mg/dL (0.3-1.0) 11/09/17 00:40 AST 13 U/L (13-39) 11/09/17 00:40 ALT 19 U/L (7-52) 11/09/17 00:40 Alkaline Phosphatase 76 U/L (34-104) 11/09/17 00:40 Total Protein 6.2 gm/dL (6.0-8.3) 11/09/17 00:40 Albumin 3.3 gm/dL (3.7-5.3) L 11/09/17 00:40 Globulin 2.9 gm/dL 11/09/17 00:40 Albumin/Globulin Ratio 1.1 (1.0-1.8) 11/09/17 00:40 TSH 0.34 uIU/ml (0.34-5.60) 11/09/17 00:40 - Physical Exam Vitals and I&O: Vital Signs Temp 96.9 F 11/19/17 06:20 Pulse 59 11/19/17 06:20 Resp 18 11/19/17 06:20 BP 117/56 11/19/17 06:20 Pulse Ox 92 11/19/17 06:20 Intake & Output 11/18/17 11/19/17 11/19/17 18:59 06:59 18:59 Intake Total 1500 180 Output Total 1 Balance 1500 179 Intake: Oral 1500 180 Output: Urine/Stool Mix 1 Other: # Voids 3 1 # Bowel Movements 1 1 Active Medications: Current Medications Aspirin (Ecotrin) 81 mg PO DAILY ELAINE Stop: 01/08/18 08:59 Last Admin: 11/19/17 08:31 Dose: 81 mg Donepezil HCl (Aricept) 5 mg PO HS ELAINE Stop: 01/08/18 20:59 Last Admin: 11/18/17 20:50 Dose: 5 mg Escitalopram Oxalate (Lexapro) 5 mg PO DAILY ELAINE; Protocol Stop: 01/08/18 09:59 Last Admin: 11/19/17 08:31 Dose: 5 mg General: Alert, No acute distress HEENT: Atraumatic Cardiovascular: Regular rate Lungs: Clear to auscultation Abdomen: Bowel sounds Extremities: Other (No edema) Neurological: Other (Unstable gait) Skin: Other (Warm and dry) Psych/Mental Status: Other (Patient is confused, not oriented) Assessment/Plan - Assessment Assessment: Patient is awake, non verbal. Per nurse report she is not swallowing well. 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 - Plan Plan: Patient is follow by Psychiatry, will continue with SNF meds. Swallow evaluation recommendations are thin liquids. Nutritional Asmnt/Malnutr-PDOC - Dietary Evaluation Malnutrition Findings (Please click <Entered> for more info): Nutritional Asmnt/Malnutrition Start: 11/11/17 17: 20 Text: Status: Complete Freq: Protocol: Document 11/11/17 17:20 LCHENG (Rec: 11/11/17 17:26 LCHENG [email or web address]) Nutritional Asmnt/Malnutrition Patient General Information Nutritional Screening High Risk Consult Diagnosis anxiety Pertinent Medical Hx/Surgical Hx alzheimers dementia, schizophrenia, bipolar Subjective Information Consult received for low albumin. Pt seen lying in bed at time of visit, confused, not able to communicate. Per EMR, PO intake 50-75%, meeting estimated nutritional needs. Current Diet Order/ Nutrition Support finely chopped Pertinent Medications reviewed Pertinent Labs 11/09 Cl 109, Alb 3.3 Nutritional Hx/Data Height 1.68 m Height (Calculated Centimeters) 167.6 Current Weight (lbs) 58.967 kg Weight (Calculated Kilograms) 59.0 Weight (Calculated Grams) 84759.0 [place] Body Weight 130 Body Mass Index (BMI) 20.9 Weight Status Approriate GI Symptoms GI Symptoms None Last BM 11/11 Difficult in: None Skin Integrity/Comment: intact Current %PO Fair (50-74%) Estimated Nutritional Goals BEE in Kcals: Using Current wt Calories/Kcals/Kg 25-30 Kcals Calculated 7102-8776 Protein: Using Current wt Protein g/k Protein Calculated 59 Fluid: ml 1475-1770ml (1ml/kcal) Nutritional Problem No current Nutrition Prob Problem N/A Malnutrition Alert Is there a minimum of two criteria No selected? Query Text:Check all the applicable criteria. A minimum of two criteria are recommended for diagnosis of either severe or non-severe malnutrition. Malnutrition Related to Morbid Obesity Malnutrition related to morbid obesity No Intervention/Recommendation Comments 1. Continue with current diet as ordered. Assist pt with meals as needed. 2. Monitor PO intake, wt, labs and skin integrity 3. F/U as low risk in 7 dyas, 11/18, PO check 11/14 Expected Outcomes/Goals Expected Outcomes/Goals 1. PO intake to meet at least 75% of nutritional needs. 2. Wt stability, skin to remain intact, labs to approach WNL.
--- NOTE | 2017-11-19 20:51 | Progress Notes ---
DATE: 11/19/2017 PSYCHIATRIC PROGRESS NOTE SUBJECTIVE: Staff was spoken to. The patient is interviewed. Mood is noted to be depressed. Affect is constricted. The patient is isolated and withdrawn. The patient gets more confused towards the end of the day. This morning, the patient seems to be resting. No side effects to the medications are noted. Sleep is noted to be improving. Appetite is noted to be poor still. ASSESSMENT: The patient is still depressed. PLAN: To continue the patient with supportive therapy and followup. [facility]# [id number]
--- NOTE | 2017-11-20 09:08 | General Progress Note ---
Subjective - Review of Systems Service Date: 11/20/17 Subjective: Patient confused, non verbal. Objective - Results Result Diagrams: 11/09/17 00:40 11/09/17 00:40 Recent Labs: Laboratory Last Values WBC 7.2 Th/cmm (4.8-10.8) 11/09/17 00:40 RBC 4.60 Mil/cmm (3.80-5.20) 11/09/17 00:40 Hgb 13.8 gm/dL (12-16) 11/09/17 00:40 Hct 41.9 % (41.0-60) 11/09/17 00:40 MCV 91.1 fl (81-100) 11/09/17 00:40 MCH 30.0 pg (27.0-31.0) 11/09/17 00:40 MCHC Differential 32.9 pg (28.0-36.0) 11/09/17 00:40 RDW 14.2 % (11.5-20.0) 11/09/17 00:40 Plt Count 226 Th/cmm (150-400) 11/09/17 00:40 MPV 8.1 fl 11/09/17 00:40 Neutrophils % 73.3 % (40.0-80.0) 11/09/17 00:40 Lymphocytes % 11.1 % (20.0-50.0) L 11/09/17 00:40 Monocytes % 10.3 % (2.0-10.0) H 11/09/17 00:40 Eosinophils % 3.1 % (0.0-5.0) 11/09/17 00:40 Basophils % 2.2 % (0.0-2.0) H 11/09/17 00:40 Sodium 140 mEq/L (136-145) 11/09/17 00:40 Potassium 3.8 mEq/L (3.5-5.1) 11/09/17 00:40 Chloride 109 mEq/L (98-107) H 11/09/17 00:40 Carbon Dioxide 24.3 mEq/L (21.0-31.0) 11/09/17 00:40 Anion Gap 10.5 (7.0-16.0) 11/09/17 00:40 BUN 17 mg/dL (7-25) 11/09/17 00:40 Creatinine 0.6 mg/dL (0.6-1.2) 11/09/17 00:40 Est GFR ( Amer) TNP 11/09/17 00:40 Est GFR (Non-Af Amer) TNP 11/09/17 00:40 BUN/Creatinine Ratio 28.3 11/09/17 00:40 Glucose 95 mg/dL (70-105) 11/09/17 00:40 Calcium 9.0 mg/dL (8.6-10.3) 11/09/17 00:40 Total Bilirubin 0.3 mg/dL (0.3-1.0) 11/09/17 00:40 AST 13 U/L (13-39) 11/09/17 00:40 ALT 19 U/L (7-52) 11/09/17 00:40 Alkaline Phosphatase 76 U/L (34-104) 11/09/17 00:40 Total Protein 6.2 gm/dL (6.0-8.3) 11/09/17 00:40 Albumin 3.3 gm/dL (3.7-5.3) L 11/09/17 00:40 Globulin 2.9 gm/dL 11/09/17 00:40 Albumin/Globulin Ratio 1.1 (1.0-1.8) 11/09/17 00:40 TSH 0.34 uIU/ml (0.34-5.60) 11/09/17 00:40 - Physical Exam Vitals and I&O: Vital Signs Temp 98 F 11/20/17 06:18 Pulse 66 11/20/17 06:18 Resp 20 11/20/17 06:18 BP 132/58 11/20/17 06:18 Pulse Ox 95 11/20/17 06:18 Intake & Output 11/19/17 11/20/17 11/20/17 18:59 06:59 18:59 Intake Total 850 120 Output Total 1 Balance 850 119 Intake: Oral 850 120 Output: Stool 1 Other: # Voids 4 3 # Bowel Movements 1 0 Active Medications: Current Medications Aspirin (Ecotrin) 81 mg PO DAILY ELAINE Stop: 01/08/18 08:59 Last Admin: 11/19/17 08:31 Dose: 81 mg Donepezil HCl (Aricept) 5 mg PO HS ELAINE Stop: 01/08/18 20:59 Last Admin: 11/19/17 21:12 Dose: 5 mg Escitalopram Oxalate (Lexapro) 5 mg PO DAILY ELAINE; Protocol Stop: 01/08/18 09:59 Last Admin: 11/19/17 08:31 Dose: 5 mg General: Alert, No acute distress HEENT: Atraumatic Cardiovascular: Regular rate Lungs: Clear to auscultation Abdomen: Bowel sounds Extremities: Other (No edema) Neurological: Other (Unstable gait) Skin: Other (Warm and dry) Psych/Mental Status: Other (Patient is confused, not oriented) Assessment/Plan - Assessment Assessment: Patient is awake, non verbal. Per nurse report she is not swallowing well. 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 - Plan Plan: Patient is follow by Psychiatry, will continue with SNF meds. Swallow evaluation recommendations are thin liquids. Nutritional Asmnt/Malnutr-PDOC - Dietary Evaluation Malnutrition Findings (Please click <Entered> for more info): Nutritional Asmnt/Malnutrition Start: 11/11/17 17: 20 Text: Status: Complete Freq: Protocol: Document 11/11/17 17:20 LCHENG (Rec: 11/11/17 17:26 LCHENG [email or web address]) Nutritional Asmnt/Malnutrition Patient General Information Nutritional Screening High Risk Consult Diagnosis anxiety Pertinent Medical Hx/Surgical Hx alzheimers dementia, schizophrenia, bipolar Subjective Information Consult received for low albumin. Pt seen lying in bed at time of visit, confused, not able to communicate. Per EMR, PO intake 50-75%, meeting estimated nutritional needs. Current Diet Order/ Nutrition Support finely chopped Pertinent Medications reviewed Pertinent Labs 11/09 Cl 109, Alb 3.3 Nutritional Hx/Data Height 1.68 m Height (Calculated Centimeters) 167.6 Current Weight (lbs) 58.967 kg Weight (Calculated Kilograms) 59.0 Weight (Calculated Grams) 88252.0 [place] Body Weight 130 Body Mass Index (BMI) 20.9 Weight Status Approriate GI Symptoms GI Symptoms None Last BM 11/11 Difficult in: None Skin Integrity/Comment: intact Current %PO Fair (50-74%) Estimated Nutritional Goals BEE in Kcals: Using Current wt Calories/Kcals/Kg 25-30 Kcals Calculated 8493-7940 Protein: Using Current wt Protein g/k Protein Calculated 59 Fluid: ml 1475-1770ml (1ml/kcal) Nutritional Problem No current Nutrition Prob Problem N/A Malnutrition Alert Is there a minimum of two criteria No selected? Query Text:Check all the applicable criteria. A minimum of two criteria are recommended for diagnosis of either severe or non-severe malnutrition. Malnutrition Related to Morbid Obesity Malnutrition related to morbid obesity No Intervention/Recommendation Comments 1. Continue with current diet as ordered. Assist pt with meals as needed. 2. Monitor PO intake, wt, labs and skin integrity 3. F/U as low risk in 7 dyas, 11/18, PO check 11/14 Expected Outcomes/Goals Expected Outcomes/Goals 1. PO intake to meet at least 75% of nutritional needs. 2. Wt stability, skin to remain intact, labs to approach WNL.
[2017-11-20] MEDS: Escitalopram Oxalate 5 mg Tab PO SCH (12:35)
--- NOTE | 2017-11-21 00:22 | Progress Notes ---
DATE: 11/20/2017 SUBJECTIVE: Staff was spoken to. The patient is interviewed. Mood is noted to be irritable. Affect is constricted. Coping skills are noted to be poor. The patient is isolated and withdrawn. The patient's coping skills are still noted to be poor. The patient, however, has been able to eat a little better and sleep is noted to be improving. ASSESSMENT: The patient is still depressed. PLAN: To continue the patient with the supportive therapy and followup. JOB# [id number]
--- NOTE | 2017-11-21 09:17 | General Progress Note ---
Subjective - Review of Systems Service Date: 11/21/17 Subjective: Patient confused, non verbal. Objective - Results Result Diagrams: 11/09/17 00:40 11/09/17 00:40 Recent Labs: Laboratory Last Values WBC 7.2 Th/cmm (4.8-10.8) 11/09/17 00:40 RBC 4.60 Mil/cmm (3.80-5.20) 11/09/17 00:40 Hgb 13.8 gm/dL (12-16) 11/09/17 00:40 Hct 41.9 % (41.0-60) 11/09/17 00:40 MCV 91.1 fl (81-100) 11/09/17 00:40 MCH 30.0 pg (27.0-31.0) 11/09/17 00:40 MCHC Differential 32.9 pg (28.0-36.0) 11/09/17 00:40 RDW 14.2 % (11.5-20.0) 11/09/17 00:40 Plt Count 226 Th/cmm (150-400) 11/09/17 00:40 MPV 8.1 fl 11/09/17 00:40 Neutrophils % 73.3 % (40.0-80.0) 11/09/17 00:40 Lymphocytes % 11.1 % (20.0-50.0) L 11/09/17 00:40 Monocytes % 10.3 % (2.0-10.0) H 11/09/17 00:40 Eosinophils % 3.1 % (0.0-5.0) 11/09/17 00:40 Basophils % 2.2 % (0.0-2.0) H 11/09/17 00:40 Sodium 140 mEq/L (136-145) 11/09/17 00:40 Potassium 3.8 mEq/L (3.5-5.1) 11/09/17 00:40 Chloride 109 mEq/L (98-107) H 11/09/17 00:40 Carbon Dioxide 24.3 mEq/L (21.0-31.0) 11/09/17 00:40 Anion Gap 10.5 (7.0-16.0) 11/09/17 00:40 BUN 17 mg/dL (7-25) 11/09/17 00:40 Creatinine 0.6 mg/dL (0.6-1.2) 11/09/17 00:40 Est GFR ( Amer) TNP 11/09/17 00:40 Est GFR (Non-Af Amer) TNP 11/09/17 00:40 BUN/Creatinine Ratio 28.3 11/09/17 00:40 Glucose 95 mg/dL (70-105) 11/09/17 00:40 Calcium 9.0 mg/dL (8.6-10.3) 11/09/17 00:40 Total Bilirubin 0.3 mg/dL (0.3-1.0) 11/09/17 00:40 AST 13 U/L (13-39) 11/09/17 00:40 ALT 19 U/L (7-52) 11/09/17 00:40 Alkaline Phosphatase 76 U/L (34-104) 11/09/17 00:40 Total Protein 6.2 gm/dL (6.0-8.3) 11/09/17 00:40 Albumin 3.3 gm/dL (3.7-5.3) L 11/09/17 00:40 Globulin 2.9 gm/dL 11/09/17 00:40 Albumin/Globulin Ratio 1.1 (1.0-1.8) 11/09/17 00:40 TSH 0.34 uIU/ml (0.34-5.60) 11/09/17 00:40 - Physical Exam Vitals and I&O: Vital Signs Temp 98.4 F 11/20/17 20:00 Pulse 76 11/20/17 20:00 Resp 18 11/20/17 20:00 BP 122/59 11/20/17 20:00 Pulse Ox 96 11/20/17 20:00 Intake & Output 11/20/1718 11/21/17 18:59 06:59 18:59 Intake Total 960 200 Balance 960 200 Intake: Oral 960 200 Other: # Voids 3 1 # Bowel Movements 0 Active Medications: Current Medications Aspirin (Ecotrin) 81 mg PO DAILY ELAINE Stop: 01/08/18 08:59 Last Admin: 11/20/17 12:35 Dose: Not Given Donepezil HCl (Aricept) 5 mg PO ELAINE Stop: 01/08/18 20:59 Last Admin: 11/20/17 20:50 Dose: 5 mg Escitalopram Oxalate (Lexapro) 5 mg PO DAILY ELAINE; Protocol Stop: 01/08/18 09:59 Last Admin: 11/20/17 12:35 Dose: Not Given General: Alert, No acute distress HEENT: Atraumatic Cardiovascular: Regular rate Lungs: Clear to auscultation Abdomen: Bowel sounds Extremities: Other (No edema) Neurological: Other (Unstable gait) Skin: Other (Warm and dry) Psych/Mental Status: Other (Patient is confused, not oriented) Assessment/Plan - Assessment Assessment: Patient is awake, non verbal. 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 - Plan Plan: Patient is follow by Psychiatry, will continue with SNF meds. Swallow evaluation recommendations are thin liquids. Will continue to monitor. Nutritional Asmnt/Malnutr-PDOC - Dietary Evaluation Malnutrition Findings (Please click <Entered> for more info): Nutritional Asmnt/Malnutrition Start: 11/11/17 17: 20 Text: Status: Complete Freq: Protocol: Document 11/11/17 17:20 LCHENG (Rec: 11/11/17 17:26 LCHENG [email or web address]) Nutritional Asmnt/Malnutrition Patient General Information Nutritional Screening High Risk Consult Diagnosis anxiety Pertinent Medical Hx/Surgical Hx alzheimers dementia, schizophrenia, bipolar Subjective Information Consult received for low albumin. Pt seen lying in bed at time of visit, confused, not able to communicate. Per EMR, PO intake 50-75%, meeting estimated nutritional needs. Current Diet Order/ Nutrition Support finely chopped Pertinent Medications reviewed Pertinent Labs 11/09 Cl 109, Alb 3.3 Nutritional Hx/Data Height 1.68 m Height (Calculated Centimeters) 167.6 Current Weight (lbs) 58.967 kg Weight (Calculated Kilograms) 59.0 Weight (Calculated Grams) 99944.0 [place] Body Weight 130 Body Mass Index (BMI) 20.9 Weight Status Approriate GI Symptoms GI Symptoms None Last BM 11/11 Difficult in: None Skin Integrity/Comment: intact Current %PO Fair (50-74%) Estimated Nutritional Goals BEE in Kcals: Using Current wt Calories/Kcals/Kg 25-30 Kcals Calculated 2818-6686 Protein: Using Current wt Protein g/k Protein Calculated 59 Fluid: ml 1475-1770ml (1ml/kcal) Nutritional Problem No current Nutrition Prob Problem N/A Malnutrition Alert Is there a minimum of two criteria No selected? Query Text:Check all the applicable criteria. A minimum of two criteria are recommended for diagnosis of either severe or non-severe malnutrition. Malnutrition Related to Morbid Obesity Malnutrition related to morbid obesity No Intervention/Recommendation Comments 1. Continue with current diet as ordered. Assist pt with meals as needed. 2. Monitor PO intake, wt, labs and skin integrity 3. F/U as low risk in 7 dyas, 11/18, PO check 11/14 Expected Outcomes/Goals Expected Outcomes/Goals 1. PO intake to meet at least 75% of nutritional needs. 2. Wt stability, skin to remain intact, labs to approach WNL.
[2017-11-21] MEDS: Escitalopram Oxalate 5 mg Tab PO SCH (11:32)
--- NOTE | 2017-11-21 16:18 | Progress Notes ---
DATE: 11/21/2017 SUBJECTIVE: Staff was spoken to. The patient is interviewed. Mood is noted to be anxious. The patient is not suicidal or homicidal. Insight and judgment are improving. Impulse control seems to be fair. Coping skills are also noted to be fair. The patient is willing to comply with the treatment. The patient has not been presenting with any major concerns at this time. ASSESSMENT: The patient is stabilizing. PLAN: To discharge the patient today for followup on outpatient basis. JOB# [id number]
--- NOTE | 2017-11-23 12:25 | Discharge Summary ---
DATE OF DISCHARGE: 11/21/2017 IDENTIFYING DATA: The patient is an 87-year-old woman, resident of [facility] in [place]. JUSTIFICATION OF HOSPITALIZATION: The patient is admitted for acute anxiety and depression. DIAGNOSES AT THE TIME OF ADMISSION: AXIS I: A. Anxiety disorder, not otherwise specified. B. Dementia and behavioral change, secondary trait. C. Depressive disorder, not otherwise specified. AXIS II: None. AXIS III: As per Dr. Monsalve. HISTORY OF PRESENT ILLNESS: Please refer to the 11/09/2017 dictation done by me. Physical examination was done by Dr. Monsalve and is noted to be within normal limits and blood work has done at the time of the hospitalization indicated 109 of the chloride and TSH is noted to be 0.34. Rest of the labs are noted to be within normal limits. HOSPITAL COURSE AND RESPONSE TO TREATMENT: In view of her depression, the patient has been started on the Lexapro and the patient has been closely monitored and I encouraged to participate in the groups and verbalize the concerns and the patient's participation in the groups is noted to be very minimal and the patient has been isolative and withdrawn for most of the time. Appetite is noted to be poor. The patient's insight and judgment also noted to be limited. The patient has been placed on low dose of escitalopram 5 mg and the patient has been encouraged to participate in the groups and verbalize the concerns and the patient has been given the Ativan and then Ambien on a p.r.n. basis. With these medications, the patient was observed and was noted to be doing fairly well and was discharged on 11/21/2017 with recommendations that she is going to be seeking treatment on an outpatient basis. DIAGNOSES AT THE TIME OF DISCHARGE: AXIS I: A. Depressive disorder, not otherwise specified. B. Dementia and behavioral change, secondary trait. AFTERCARE PLAN: The patient is discharged to [facility] to be followed up on an outpatient basis. PROGNOSIS: At the time of discharge noted to be guarded. JOB# [id number]
== END 2017-11-21 16:30 | DRG 880 ==
LOC: ER 23:18 → GERO 11-09 02:22
PROVIDERS: ADMIT Psychiatry & Neurology Psychiatry; ATTEND Psychiatry & Neurology Psychiatry
DX: F41.9 Anxiety disorder, unspecified (principal); F02.81 Dementia in other diseases classified elsewhere, unspecified severity, with behavioral disturbance; G30.9 Alzheimer's disease, unspecified; F17.200 Nicotine dependence, unspecified, uncomplicated; F31.9 Bipolar disorder, unspecified
CPT/HCPCS: 36415-UA; 80053-TC; 84443-TC; 85025-TC; 93005; X3401